=== PATIENT | female | born 1950 | race Caucasian/White ===

== ENCOUNTER 2021-04-07 10:57 | Outpatient (CLI) | payer SELFPAY | END 2021-04-07 10:58 | disposition EMS.NT | LOC: EMS 10:57 | DX: R00.2 Palpitations (principal) ==

== ENCOUNTER 2021-08-26 09:01 | Outpatient (CLI) | payer MEDICARE ==
[2021-08-26 15:20] LABS: BUN - BLOOD UREA NITROGEN 12 mg/dL (6-20); CALCIUM 9.5 mg/dL (8.5-10.3); CARBON DIOXIDE - CO2 29 mmol/L (21-32); CHLORIDE 100 mmol/L (101-111); CHOLESTEROL 261 mg/dL; CREATININE 0.6 mg/dL (0.4-1.0); GFR - MDRD 98 (>89); GLUCOSE 97 mg/dL (70-100); HDL CHOLESTEROL 88 mg/dL; LDL CHOLESTEROL,CALCULATED 162 mg/dL; LDL/HDL RATIO 1.8 (<4.4); POTASSIUM 4.3 mmol/L (3.5-5.0); SODIUM 135 mmol/L (135-145); TRIGLYCERIDES 53 mg/dL; VLDL CHOLESTEROL 11 mg/dL
[2021-08-26 18:02] LABS: ESTIMATED AVERAGE GLUCOSE 126 mg/dL (70-100)
== END 2021-08-26 09:02 | disposition home or self-care (01) ==
LOC: LAB.S 09:01
DX: R73.03 Prediabetes (principal); E78.00 Pure hypercholesterolemia, unspecified
CPT/HCPCS: 36415; 80048; 80061; 83036; 83721